=== PATIENT | male | born 1965 | race Caucasian/White ===

== ENCOUNTER 2016-12-28 14:57 | Inpatient (IN) | payer MEDICARE, MEDICAID ==
--- NOTE | 2016-12-28 15:44 | ED Physician Chart ---
ED Chief Complaint/HPI - Patient Information Date Seen:: 12/28/16 Time Seen:: 15:30 Chief Complaint:: abdominal pain History of Present Illness:: Patient complains of lower abdominal pain at the side of his inguinal hernia repairs. He has been vomiting for one month and had diarrhea 3 times. He denies fever. Patient had 40 minutes of sharp substernal nonpleuritic chest pain this morning. The last similar episode of chest pain was 2 weeks ago. Allergies:: Allergies Allergy/AdvReac Type Severity Reaction Status Date / Time meperidine Allergy Verified 12/28/16 15:10 morphine Allergy Verified 12/28/16 15:10 Vitals:: Vital Signs - 8 hr 12/28/16 15:10 Temp 98.5 F HR 80 RR 16 BP 115/74 O2 Sat % 95 Historian:: Patient Review:: Nurse's Note Reviewed ED Review of Systems - Review of Systems General/Constitutional: No fever, No chills Skin: No skin lesions Head: No headache Eyes: No loss of vision ENT: No earache, No sore throat Neck: No neck pain Cardio Vascular: Chest pain Pulmonary: No SOB GI: Nausea, Vomiting, Diarrhea G/U: No dysuria Musculoskeletal: No bone or joint pain Endocrine: No polyuria Psychiatric: No prior psych history Hematopoietic: No bruising Allergic/Immuno: No urticaria Neurological: No syncope, No focal symptoms, No weakness, No dizziness ED Past Medical History - Past Medical History Past Medical History: Asthma/COPD, Other (acute renal failure; schizophrenia; major depression; anxiety) Family History: HTN Social History: Smoker, Care Facility, Other (smokes one half packages of cigarettes per day and smokes 1) Surgical History: other (laparotomy for peptic ulcer; 3 right inguinal and 2 left inguinal hernia repairs) ED Physical Exam - Physical Examination General/Constitutional: Awake, Well-developed, well-nourished, Alert, No distress Head: Atraumatic Eyes: Lids, conjuctiva normal, PERRL Other Skin comments:: Nicotine stained fingers ENMT: External ears, nose nl Other ENMT comments:: poor dental hygiene Neck: No nuchal rigidity Respiratory: Nl effort/Exclusion Other Respiratory comments:: Decreased breath sounds Cardio Vascular: RRR, No murmur, gallop, rubs GI: No tenderness/rebounding/guarding, No organomegaly Other GI comments:: Mild lower abdominal tenderness Extremities: Normal digits & nails Neuro/Psych: Alert/oriented, No focal deficits Misc: Normal back ED Labs/Radiology/EKG Results - Lab Results Results: Laboratory Results - last 24 hr 12/28/16 12/28/16 12/28/16 15:41 15:41 15:41 WBC 7.5 RBC 4.87 Hgb 13.8 Hct 41.8 MCV 85.8 MCH 28.4 MCHC Differential 33.1 RDW 13.6 Plt Count 200 MPV 8.8 Neutrophils % 60.7 Lymphocytes % 25.9 Monocytes % 11.9 H Eosinophils % 1.3 Basophils % 0.2 Sodium 137 Potassium 3.4 L Chloride 93 L Carbon Dioxide 42.1 H Anion Gap 5.3 L BUN 18 Creatinine 0.9 Est GFR ( Amer) > 60.0 Est GFR (Non-Af Amer) > 60.0 BUN/Creatinine Ratio 20.0 Glucose 115 H Calcium 10.3 Magnesium 1.8 L Troponin I < 0.01 L Lipase 25 - Radiology Results Results: Chest x-ray left perihilar fullness. CT abdomen and pelvis showed massively distended stomach; possible gastric outlet obstruction - EKG Interpretations Rate & Rhythm: normal sinus rhythm with a rate of 80 [place]: normal Comments:: Early repolarization ED Septic Shock - . Is Septic Shock (SBP<90, OR Lactate>4 mmol\L) present?: No - <6hrs of presentation: Vital Signs: Vital Signs - 8 hr 12/28/16 15:10 Temp 98.5 F HR 80 RR 16 BP 115/74 O2 Sat % 95 ED Reassessment (Disposition) - Reassessment Reassessment Condition:: Unchanged - Diagnosis Diagnosis:: gastric outlet obstruction; COPD; schizophrenia - Patient Disposition Admitted to:: Med/Surg Spoke to:: Tung Collier Admitting Medical Physician:: Tung Collier Condition at Disposition:: Stable, Unchanged
[2016-12-28 15:46] LABS: % BASOPHILS 0.2 % (0.0-2.0); % EOSINOPHILS 1.3 % (0.0-5.0); % LYMPHOCYTES 25.9 % (20.0-50.0); % MONOCYTES 11.9 % (2.0-10.0); % NEUTROPHILS 60.7 % (40.0-80.0); HEMATOCRIT 41.8 % (41.0-60); HEMOGLOBIN 13.8 gm/dL (12-16); MEAN CELL VOLUME 85.8 fl (80-99); MEAN CORPUSCULAR HEMOGLOBIN 28.4 pg (26.0-30.0); MEAN CORPUSCULAR HGB CONC 33.1 pg (28.0-36.0); MEAN PLATELET VOLUME 8.8 fl; NEUTROPHILE ABSOLUTE 4.6 Th/cmm (1.8-8.0); PLATELET COUNT 200 Th/cmm (150-400); RED BLOOD COUNT 4.87 Mil/cmm (4.30-5.70); RED CELL DISTRIBUTION WIDTH 13.6 % (11.5-20.0); WHITE BLOOD COUNT 7.5 Th/cmm (4.8-10.8)
[2016-12-28 16:03] LABS: ANION GAP 5.3 (7.0-16.0); BUN - UREA NITROGEN 18 mg/dL (7-25); CALCIUM SERUM 10.3 mg/dL (8.6-10.3); CARBON DIOXIDE 42.1 mEq/L (21.0-31.0); CHLORIDE 93 mEq/L (98-107); CREATININE - SERUM 0.9 mg/dL (0.7-1.3); GLUCOSE 115 mg/dL (70-105); LIPASE 25 U/L (11-82); MAGNESIUM 1.8 mg/dL (1.9-2.7); POTASSIUM SERUM 3.4 mEq/L (3.5-5.1); SODIUM SERUM 137 mEq/L (136-145)
[2016-12-28 17:24] LABS: URINE BILIRUBIN NEGATIVE (NEGATIVE); URINE BLOOD NEGATIVE (NEGATIVE); URINE GLUCOSE (UA) NEGATIVE (NEGATIVE); URINE KETONE NEGATIVE (NEGATIVE); URINE PROTEIN NEGATIVE (NEGATIVE); URINE UROBILINOGEN 0.2 E.U./dL (0.2 - 1.0)
[2016-12-28 17:52] LABS: URINE COLOR YELLOW
[2016-12-28 17:54] LABS: URINE BACTERIA NONE SEEN /hpf (NONE SEEN); URINE EPITHELIAL CELLS NONE SEEN /lpf (FEW); URINE RBC NONE SEEN /hpf (0-5); URINE WBC NONE SEEN /hpf (0-5)
[2016-12-28] MEDS ORDERED: Sodium Chloride 0.9% 1,000 ML IV ONE (18:34)
[2016-12-28] MEDS ORDERED: HYDROmorphone 1 mg/mL 1mL Syr IVP STA (18:35)
[2016-12-28] MEDS ORDERED: HYDROmorphone 1 mg/mL 1mL Syr ONE (19:36)
[2016-12-28] MEDS ORDERED: Albuterol Nebulizer 2.5mg/3mL HHN PRN (19:53)
[2016-12-28] MEDS ORDERED: Magnesium Hydroxide (MOM) 30 mL UDC PO PRN (19:53)
[2016-12-28] MEDS ORDERED: Maalox 30 mL Cup PO PRN (21:05)
[2016-12-28] MEDS: D5-0.9NS w/KCL 20mEq 1,000 ML IV SCH (22:10)
[2016-12-28] MEDS: Metoclopramide 5 mg/mL 2mL Vial IVP SCH (22:10)
[2016-12-28 23:09] VITALS: BP 101/64
[2016-12-29 05:08] LABS: % BASOPHILS 0.1 % (0.0-2.0); % LYMPHOCYTES 34.4 % (20.0-50.0); % MONOCYTES 14.5 % (2.0-10.0); HEMATOCRIT 39.3 % (41.0-60); HEMOGLOBIN 13.2 gm/dL (12-16); MEAN CELL VOLUME 86.1 fl (80-99); MEAN CORPUSCULAR HEMOGLOBIN 28.8 pg (26.0-30.0); MEAN CORPUSCULAR HGB CONC 33.5 pg (28.0-36.0); MEAN PLATELET VOLUME 9.3 fl; NEUTROPHILE ABSOLUTE 3.8 Th/cmm (1.8-8.0); PLATELET COUNT 188 Th/cmm (150-400); RED BLOOD COUNT 4.57 Mil/cmm (4.30-5.70); RED CELL DISTRIBUTION WIDTH 13.6 % (11.5-20.0); WHITE BLOOD COUNT 7.8 Th/cmm (4.8-10.8)
[2016-12-29 05:35] LABS: ALB/GLOB RATIO 1.1 (1.0-1.8); ALKALINE PHOSPHATASE 59 U/L (34-104); BILIRUBIN,TOTAL 0.4 mg/dL (0.3-1.0); BUN - UREA NITROGEN 17 mg/dL (7-25); BUN/CREATININE RATIO 21.3; CALCIUM SERUM 9.2 mg/dL (8.6-10.3); CHLORIDE 92 mEq/L (98-107); CREATININE - SERUM 0.8 mg/dL (0.7-1.3); GLUCOSE 92 mg/dL (70-105); MAGNESIUM 1.8 mg/dL (1.9-2.7); POTASSIUM SERUM 3.1 mEq/L (3.5-5.1); SGOT 10 U/L (13-39); SGPT/ALT 7 U/L (7-52); SODIUM SERUM 136 mEq/L (136-145)
[2016-12-29 05:50] LABS: ANION GAP 6.9 (7.0-16.0)
[2016-12-29 05:57] LABS: CARBON DIOXIDE 40.2 mEq/L (21.0-31.0)
--- NOTE | 2016-12-29 08:05 | Diagnostic Imaging Report ---
CHEST X-RAY: AP view INDICATION: Pneumonia COMPARISON: None FINDINGS: Chronic lung changes are noted. There is no focal consolidation or pleural effusions The heart is normal in size. The osseous structures demonstrate no acute abnormalities. IMPRESSION: Chronic lung changes with no focal consolidation identified.
--- NOTE | 2016-12-29 08:18 | Diagnostic Imaging Report ---
CT abdomen and pelvis without intravenous contrast Indication: Abdominal pain Comparison: None, Technique: Axial images were obtained from the lung bases to the bilateral proximal femurs without IV contrast. Coronal reconstructions were made. total DLP: 368, CTDI7.9 FINDINGS: Hypoventilatory changes and atelectatic changes of the lung bases are noted. Assessment of the solid organs is limited due to lack of IV contrast. No evidence of focal hepatic lesions. No focal splenic or pancreatic lesions. Note assessment of the pancreas is limited due to patient's distended stomach. No focal adrenal lesions. No evidence of hydronephrosis or focal renal lesions. No evidence of free fluid or free air. Moderate amount of stool is noted. No appendicitis. There is significant distention of the stomach with food contents and narrowing along the distal aspect of the stomach. Nondilated loops of small bowel are noted. The prostate gland is mildly prominent demonstrating calcifications. Mild atherosclerosis is noted. Degenerative changes of the spine are noted. 7 mm indeterminate lucent lesion of the left iliac bone is seen adjacent to the posterior aspect of the left sacroiliac joint. IMPRESSION: Significant distention of the stomach containing food contents with narrowing along the distal stomach. Nondilated loops of small bowel are noted. Please correlate clinically as gastric outlet obstruction cannot be excluded in the appropriate clinical setting. Moderate amount of stool noted. Mildly prominent prostate please, correlate with clinical findings. 7 mm indeterminate lucent lesion of left iliac bone adjacent to the posterior aspect of the left sacroiliac joint. Please correlate with clinical findings and old exams. Short-term follow-up surveillance is recommended as benign or malignant etiology cannot be excluded.
[2016-12-29] MEDS: HYDROmorphone 1 mg/mL 1mL Syr IVP PRN ×3 (08:57→14:16)
[2016-12-29] MEDS ORDERED: Pneumococcal Vaccine 0.5 mL Vial IM ONE (09:00)
[2016-12-29] MEDS: Metoclopramide 5 mg/mL 2mL Vial IVP SCH ×4 (09:03→23:49)
[2016-12-29] MEDS: D5-0.9NS w/KCL 20mEq 1,000 ML IV SCH ×2 (13:16→23:11)
[2016-12-29] MEDS ORDERED: Potassium Chloride 20 mEq ER Tab PO ONE (14:48)
--- NOTE | 2016-12-29 19:17 | Internal Medicine Prog Note ---
Internal Medicine Subjective - Subjective Service Date: 12/29/16 ([facility] [id number]) Internal Medicine Objective - Results Result Diagrams: 12/29/16 04:48 12/29/16 04:48 Recent Labs: Laboratory Last Values WBC 7.8 Th/cmm (4.8-10.8) 12/29/16 04:48 RBC 4.57 Mil/cmm (4.30-5.70) 12/29/16 04:48 Hgb 13.2 gm/dL (12-16) 12/29/16 04:48 Hct 39.3 % (41.0-60) L 12/29/16 04:48 MCV 86.1 fl (80-99) 12/29/16 04:48 MCH 28.8 pg (26.0-30.0) 12/29/16 04:48 MCHC Differential 33.5 pg (28.0-36.0) 12/29/16 04:48 RDW 13.6 % (11.5-20.0) 12/29/16 04:48 Plt Count 188 Th/cmm (150-400) 12/29/16 04:48 MPV 9.3 fl 12/29/16 04:48 Neutrophils % 49.0 % (40.0-80.0) 12/29/16 04:48 Lymphocytes % 34.4 % (20.0-50.0) 12/29/16 04:48 Monocytes % 14.5 % (2.0-10.0) H 12/29/16 04:48 Eosinophils % 2.0 % (0.0-5.0) 12/29/16 04:48 Basophils % 0.1 % (0.0-2.0) 12/29/16 04:48 Sodium 136 mEq/L (136-145) 12/29/16 04:48 Potassium 3.1 mEq/L (3.5-5.1) L 12/29/16 04:48 Chloride 92 mEq/L (98-107) L 12/29/16 04:48 Carbon Dioxide 40.2 mEq/L (21.0-31.0) H 12/29/16 04:48 Anion Gap 6.9 (7.0-16.0) L 12/29/16 04:48 BUN 17 mg/dL (7-25) 12/29/16 04:48 Creatinine 0.8 mg/dL (0.7-1.3) 12/29/16 04:48 Est GFR ( Amer) > 60.0 ml/min (>90) 12/29/16 04:48 Est GFR (Non-Af Amer) > 60.0 ml/min 12/29/16 04:48 BUN/Creatinine Ratio 21.3 12/29/16 04:48 Glucose 92 mg/dL (70-105) 12/29/16 04:48 Calcium 9.2 mg/dL (8.6-10.3) 12/29/16 04:48 Magnesium 1.8 mg/dL (1.9-2.7) L 12/29/16 04:48 Total Bilirubin 0.4 mg/dL (0.3-1.0) 12/29/16 04:48 AST 10 U/L (13-39) L 12/29/16 04:48 ALT 7 U/L (7-52) 12/29/16 04:48 Alkaline Phosphatase 59 U/L (34-104) 12/29/16 04:48 Troponin I < 0.01 ng/mL (0.01-0.05) L 12/28/16 15:41 Total Protein 6.2 gm/dL (6.0-8.3) 12/29/16 04:48 Albumin 3.2 gm/dL (4.2-5.5) L 12/29/16 04:48 Globulin 3.0 gm/dL 12/29/16 04:48 Albumin/Globulin Ratio 1.1 (1.0-1.8) 12/29/16 04:48 Lipase 25 U/L (11-82) 12/28/16 15:41 TSH 1.66 uIU/ml (0.34-5.60) 12/29/16 04:48 Urine Source MIDSTREAM 12/28/16 15:00 Urine Color YELLOW 12/28/16 15:00 Urine Clarity CLEAR (CLEAR) 12/28/16 15:00 Urine pH 8.0 (4.6 - 8.0) 12/28/16 15:00 Ur Specific [place] 1.015 (1.005-1.030) 12/28/16 15:00 Urine Protein NEGATIVE mg/dL (NEGATIVE) 12/28/16 15:00 Urine Glucose (UA) NEGATIVE mg/dL (NEGATIVE) 12/28/16 15:00 Urine Ketones NEGATIVE mg/dL (NEGATIVE) 12/28/16 15:00 Urine Blood NEGATIVE (NEGATIVE) 12/28/16 15:00 Urine Nitrate NEGATIVE (NEGATIVE) 12/28/16 15:00 Urine Bilirubin NEGATIVE (NEGATIVE) 12/28/16 15:00 Urine Urobilinogen 0.2 E.U./dL (0.2 - 1.0) 12/28/16 15:00 Ur Leukocyte Esterase NEGATIVE (NEGATIVE) 12/28/16 15:00 Urine RBC NONE SEEN /hpf (0-5) 12/28/16 15:00 Urine WBC NONE SEEN /hpf (0-5) 12/28/16 15:00 Ur Epithelial Cells NONE SEEN /lpf (FEW) 12/28/16 15:00 Urine Bacteria NONE SEEN /hpf (NONE SEEN) 12/28/16 15:00 - Physical Exam Vitals and I&O: Vital Signs Temp 99.2 F 12/29/16 13:00 Pulse 66 12/29/16 13:00 Resp 18 12/29/16 13:00 BP 98/53 12/29/16 13:00 Pulse Ox 96 12/29/16 04:54 Intake & Output 12/29/16 12/29/16 12/30/16 06:59 18:59 06:59 Intake Total 340 2000 Output Total 800 Balance -460 2000 Weight (lbs) 158 lb Intake: Intake, IV Amount 2000 D5-0.9NS w/KCL 20mEq 1, 2000 000 ml @ 100 mls/hr IV . Q10H ON LICENSE OF [facility] Rx#:[id number] Oral 340 Output: Urine 700 Emesis 100 Other: # Voids 2 # Bowel Movements 0 Active Medications: Current Medications Acetaminophen (Tylenol) 650 mg PO Q4H PRN PRN Reason: Pain Or Fever above 101 Stop: 02/26/17 19:57 Al Hydrox/Mg Hydrox/Simethicone (Maalox) 30 ml PO Q4H PRN PRN Reason: DYSPEPSIA Stop: 02/26/17 21:04 Albuterol Sulfate (Albuterol 2.5mg/3ml Neb Ud) 2.5 mg HHN Q6H PRN PRN Reason: sob/wheezing Docusate Sodium (Colace) 100 mg PO DAILY ON LICENSE OF [facility] Stop: 02/27/17 08:59 Last Admin: 12/29/16 09:04 Dose: 100 mg Famotidine (Pepcid) 20 mg IVP BID SEAN Stop: 02/27/17 08:59 Last Admin: 12/29/16 16:18 Dose: 20 mg Hydromorphone HCl (Dilaudid) 1 mg IVP Q4HR PRN PRN Reason: Pain (Severe) Stop: 02/26/17 19:56 Last Admin: 12/29/16 14:16 Dose: 1 mg Potassium Chloride/Dextrose/Sod Cl (D5-0.9ns W/Kcl 20meq) 1,000 mls @ 100 mls/ hr IV .Q10H SEAN Stop: 02/26/17 19:55 Last Infusion: 12/29/16 13:24 Dose: Infused Lorazepam (Ativan) 1 mg PO Q6H PRN; Protocol PRN Reason: Anxiety Stop: 02/26/17 19:52 Magnesium Hydroxide (Milk Of Magnesia) 30 ml PO HS PRN PRN Reason: Constipation Stop: 02/26/17 19:52 Metoclopramide HCl (Reglan) 10 mg IVP Q6HR SEAN Stop: 12/30/16 23:59 Last Admin: 12/29/16 13:44 Dose: 10 mg Ondansetron HCl (Zofran) 4 mg IV Q8H PRN PRN Reason: Nausea / Vomiting Stop: 02/26/17 19:57 Last Admin: 12/29/16 00:00 Dose: 4 mg Risperidone (Risperdal) 2 mg PO BID ON LICENSE OF [facility] Stop: 02/27/17 08:59 Senna (Senna) 8.6 mg PO DAILY ON LICENSE OF [facility] Stop: 02/27/17 08:59 Last Admin: 12/29/16 09:04 Dose: 8.6 mg Sertraline HCl (Zoloft) 100 mg PO DAILY ON LICENSE OF [facility] Stop: 02/27/17 08:59 Zolpidem Tartrate (Ambien) 10 mg PO HS PRN PRN Reason: Insomnia Stop: 02/26/17 21:06 Internal Medicine Assmt/Plan - Assessment Assessment: ABDOMINAL PAIN hypokalemia copd hypomagnesemia mild protein calorie malnutrition schizophrenia acute kidney failure
--- NOTE | 2016-12-29 20:50 | History & Physical ---
ADMIT DATE: 12/29/2016 DICTATED FOR: Dr: Tung Collier. CHIEF COMPLAINT: Abdominal pain. HISTORY OF PRESENT ILLNESS: This is a 51-year-old male, who is a resident of [facility], who was brought here to [facility] due to complaints of abdominal pain. According to the patient, he has been having this recurrent abdominal pain for one month associated with vomiting. He also states that he has been having diarrhea. The patient denies any fevers. He also stated that his abdominal pain radiates to his epigastric area that caused him to have chest pain as well. Upon examination, the patient still complains of abdominal pain that radiates to the epigastric area. PAST MEDICAL HISTORY: COPD, generalized weakness, acute kidney failure, schizophrenia, major depressive disorder and anxiety. SOCIAL HISTORY: The patient is a skilled nursing resident. The patient also smokes half a pack per day. PAST SURGICAL HISTORY: Two right inguinal and two left inguinal hernia repair. FAMILY HISTORY: Noncontributory. REVIEW OF SYSTEMS: GENERAL: Denies any fever, any chills. CARDIOVASCULAR: Denies chest pain. RESPIRATORY: Denies shortness of breath. GASTROINTESTINAL: Denies abdominal pain. Patient complains of abdominal pain. Denies any nausea or vomiting. GENITOURINARY: Denies dysuria. All other systems are reviewed by me and are negative. PHYSICAL EXAMINATION: GENERAL: The patient is well developed, well nourished, no acute distress. VITAL SIGNS: Temperature 99.2, heart rate 66, blood pressure 98/53, respirations 18, O2 of 98%. HEENT: Head is normocephalic and atraumatic. NECK: Supple. No mass. LUNGS: Clear bilaterally. ABDOMEN: Soft, nontender. LABORATORY DATA: WBC 7.8, H and H 13.2 and 39.3, platelet 188. Sodium 136, potassium 3.1, chloride 92, BUN 17, creatinine 0.8. Albumin 3.2. DIAGNOSTICS: The patient had a chest x-ray done and the impression chronic lung changes. Also, a CT of the abdomen and pelvis was also done and the impression is significant distention of the stomach containing food contents with narrowing along the distal stomach , moderate amount of stool noted. ASSESSMENT: Abdominal pain, chronic obstructive pulmonary disease, acute kidney failure, schizophrenia, hypokalemia, mild protein-calorie malnutrition, hypomagnesemia. PLAN: The patient was admitted to the med/surg unit, will have GI on the case. We will monitor patient's electrolytes level. The patient to be n.p.o., IV fluids for hydration. Pain management will be initiated. We will continue to monitor this patient. JOB# [id number]
--- NOTE | 2016-12-29 22:19 | Consultation ---
DATE OF CONSULTATION: 12/29/2016 REASON FOR CONSULTATION: Nausea, vomiting, abdominal pain. HISTORY OF PRESENT ILLNESS: This consult was obtained through the courtesy of Dr. Collier for this 51-year-old with history of schizophrenia admitted to the hospital because of abdominal pain, nausea, vomiting. The patient apparently had recurrent episodes like this. He had history of ulcers for which he had surgery in the past. The patient came to the hospital, was admitted, had a CAT scan, which showed possible gastric outlet obstruction. The patient denies any weight loss. No hematemesis, melena or hematochezia. PAST MEDICAL HISTORY: Schizophrenia. PAST SURGICAL HISTORY: Abdominal surgery for ulcer. SOCIAL HISTORY: Smokes 1 pack a day, nonalcoholic, IV drug abuser. FAMILY HISTORY:. He thinks his mother might have stomach cancer, his father before he knew. MEDICATIONS: Risperdal. ALLERGIES: No known drug allergy. REVIEW OF SYSTEMS: As per history of present illness. PHYSICAL EXAMINATION: GENERAL: The patient is awake, oriented to self, place, in no acute distress. VITAL SIGNS: Blood pressure is 110/69, respiratory rate 18, temperature is 98.4. HEAD AND NECK: Pupils reactive to light and accommodation. Extraocular muscles intact. Sclerae are anicteric, conjunctivae not pale. Oral cavity, no lesion. NECK: Supple, no jugular venous distention, no carotid bruit or lymph nodes. CHEST: Good respiratory movements. LUNGS: Clear to auscultation. CARDIOVASCULAR SYSTEM: Regular rate and rhythm. No murmur or gallop. ABDOMEN: Soft, positive bowel sounds, scar from previous surgery. Abdomen was not tender. EXTREMITIES: Lower extremities, no edema. CENTRAL NERVOUS SYSTEM: Grossly nonfocal. LABORATORY DATA: CBC unremarkable. Chemistry showed potassium of 3.4, normal liver enzymes. CT showed significant distention of the stomach with some food contents, narrowing at the distal end. IMPRESSION: A 51-year-old with abdominal pain, nausea, vomiting, abnormal CAT scan. ASSESSMENT AND PLAN: Abdominal pain, nausea and vomiting. Differential includes gastric outlet obstruction versus anastomotic stenosis versus gastroparesis secondary to surgery. RECOMMENDATION: 1. Clear liquid diet. 2. EGD in the morning. 3. Further recommendations to follow depending on the above. Other medical problems such as schizophrenia, possible COPD, etc., as per Dr. Collier. Thank you, Dr. Collier for allowing me to participate in the care of this patient. If you have any further questions, please let me know. JOB# [id number] ARYA
[2016-12-30] MEDS: Metoclopramide 5 mg/mL 2mL Vial IVP SCH (06:56)
[2016-12-30 07:21] LABS: % EOSINOPHILS 1.7 % (0.0-5.0); % MONOCYTES 11.4 % (2.0-10.0); % NEUTROPHILS 59.9 % (40.0-80.0); HEMATOCRIT 39.4 % (41.0-60); HEMOGLOBIN 13.4 gm/dL (12-16); MEAN CELL VOLUME 85.4 fl (80-99); MEAN CORPUSCULAR HEMOGLOBIN 29.1 pg (26.0-30.0); MEAN CORPUSCULAR HGB CONC 34.1 pg (28.0-36.0); MEAN PLATELET VOLUME 9.6 fl; NEUTROPHILE ABSOLUTE 3.6 Th/cmm (1.8-8.0); PLATELET COUNT 171 Th/cmm (150-400); RED BLOOD COUNT 4.62 Mil/cmm (4.30-5.70); RED CELL DISTRIBUTION WIDTH 13.6 % (11.5-20.0)
[2016-12-30 07:43] LABS: ANION GAP 6.4 (7.0-16.0); BUN - UREA NITROGEN 9 mg/dL (7-25); BUN/CREATININE RATIO 12.9; CALCIUM SERUM 9.2 mg/dL (8.6-10.3); CARBON DIOXIDE 29.4 mEq/L (21.0-31.0); CHLORIDE 107 mEq/L (98-107); CREATININE - SERUM 0.7 mg/dL (0.7-1.3); GLUCOSE 96 mg/dL (70-105); POTASSIUM SERUM 3.8 mEq/L (3.5-5.1); SODIUM SERUM 139 mEq/L (136-145)
[2016-12-30 07:48] LABS: INR 1.1 (0.5-1.4); PROTHROMBIN TIME (TEST) 11.5 SECONDS (9.5-11.5)
[2016-12-30] MEDS ORDERED: fentaNYL Citrate 100 mcg/2mL Vial IVP ONE (09:35)
[2016-12-30] MEDS ORDERED: Midazolam 1mg/ml 2 ml vial IV ONE (09:35)
--- NOTE | 2016-12-30 10:39 | Operative Report ---
DATE OF SURGERY: 12/30/2016 ENDOSCOPIST: Diomedes Valenzuela M.D. PREOPERATIVE DIAGNOSIS: Possible gastric outlet obstruction. POSTOPERATIVE DIAGNOSES: Esophagitis, Pulido's esophagus, and duodenal ulcer. INDICATION: The patient is a 51-year-old male with history of schizophrenia and previous peptic ulcer disease, possibly requiring surgery in the past, who now presents with abdominal pain, nausea, and vomiting. CT scan shows possible gastric outlet obstruction thus he is here for EGD. CONSENT: Informed consent was obtained from the patient. The risks and benefits of this procedure were explained in detail including but not limited to infection, bleeding, perforation, need for surgery, cardiopulmonary complications, missed pathology and . The patient indicated his understanding of these risks and signed the consent form. ANESTHESIA: Four mg of Versed were given and 100 mcg of fentanyl were given. PROCEDURE IN DETAIL: The patient was hooked up to the appropriate monitoring devices including blood pressure, pulse, and pulse oximetry, and IV was in place. Oxygen was delivered via nasal cannula throughout the procedure. IV sedating medication was then given in divided doses under the direction of the physician. DESCRIPTION OF PROCEDURE: After the initiation of conscious sedation the patient was placed in the left lateral decubitus position and a mouthpiece was inserted and secured. A gastroscope was then introduced into the mouth and guided under direct visualization into the esophagus, stomach, and duodenum. The scope was then slowly withdrawn, making sure to examine the entire mucosa. Retroflexion was performed in the stomach prior to straightening and withdrawal from the body. There was no obvious complication at the end of the procedure. FINDINGS: 1. Esophagus: There was [place] class C esophagitis that extended all the way up to 30 cm from the incisors. There was evidence of long segment Pulido's esophagus as the Z line extent was noted to be 35 cm from the incisors. The endogastric folds were at 40 cm from the incisors. The [place] classification for his Pulido's esophagus would be C0 M5. Biopsies were obtained from the to confirm this diagnosis. 2. Stomach: There was bilious fluid in the stomach that was suctioned completely out with only a few pieces of food underneath the gastric body and antrum appeared endoscopically normal without ulceration or mass or inflammation. Biopsies were obtained from the antrum for histology and to evaluate for H. pylori. 3. Duodenum: The pyloric folds entering into the duodenum were edematous. The scope was able to pass into the duodenal bulb. Within the bulb, there was a large anterior ulcer that measured at least 1.5 cm in size. The ulcer had a clean base. There was no obvious vessel or sign of bleeding. Biopsies were obtained from the ulcer edge to look for malignancy. The scope was able to be manipulated around the ulcer into the second portion, which appeared endoscopically normal. IMPRESSION AND RECOMMENDATIONS: 1. Esophagitis. 2. 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 3. Large duodenal bulb ulceration with surrounding edema and inflammation. I suspect that the patient's symptoms of nausea, vomiting, and abdominal pain are related to the duodenal ulcer, which is likely causing a pseudo-gastric outlet obstruction given the edema that surrounds it. We will have to follow up the biopsies to ensure this is not malignant and to also evaluate for H. pylori as a possible etiology. In the meantime, we will continue the patient on PPI b.i.d. therapy and start him on clears. Given this is an obstructive pathology, Reglan will likely not be beneficial. If the patient fails to improve on PPI therapy and there is no malignancy, he may need to consider surgical bypass of this area ultimately. The patient will also need repeat EGD after 6-8 weeks of PPI therapy to reexamine his esophagus and perform biopsies of the Pulido's area to evaluate for any dysplasia. Thank you for allowing me to participate in the care of this patient. Please call with any further questions. [facility]# [id number]
[2016-12-30] MEDS: HYDROmorphone 1 mg/mL 1mL Syr IVP PRN ×3 (11:38→22:02)
[2016-12-30] MEDS: D5-0.9NS w/KCL 20mEq 1,000 ML IV SCH ×2 (11:55→22:05)
--- NOTE | 2016-12-30 13:33 | Internal Medicine Prog Note ---
Internal Medicine Subjective - Subjective Patient seen and examined:: with staff, chart reviewed Patient is:: awake, verbal, interactive, talking, agitated, confused Patient Complaints of:: constipation, unable to sleep Per staff patient has:: no adverse event, poor oral intake, tolerating meds Internal Medicine Objective - Results Result Diagrams: 12/30/16 06:33 12/30/16 06:33 Recent Labs: Laboratory Last Values WBC 6.0 Th/cmm (4.8-10.8) D 12/30/16 06:33 RBC 4.62 Mil/cmm (4.30-5.70) 12/30/16 06:33 Hgb 13.4 gm/dL (12-16) 12/30/16 06:33 Hct 39.4 % (41.0-60) L 12/30/16 06:33 MCV 85.4 fl (80-99) 12/30/16 06:33 MCH 29.1 pg (26.0-30.0) 12/30/16 06:33 MCHC Differential 34.1 pg (28.0-36.0) 12/30/16 06:33 RDW 13.6 % (11.5-20.0) 12/30/16 06:33 Plt Count 171 Th/cmm (150-400) 12/30/16 06:33 MPV 9.6 fl 12/30/16 06:33 Neutrophils % 59.9 % (40.0-80.0) 12/30/16 06:33 Lymphocytes % 27.0 % (20.0-50.0) 12/30/16 06:33 Monocytes % 11.4 % (2.0-10.0) H 12/30/16 06:33 Eosinophils % 1.7 % (0.0-5.0) 12/30/16 06:33 Basophils % 0.0 % (0.0-2.0) 12/30/16 06:33 PT 11.5 SECONDS (9.5-11.5) 12/30/16 06:33 INR 1.10 (0.5-1.4) 12/30/16 06:33 Sodium 139 mEq/L (136-145) 12/30/16 06:33 Potassium 3.8 mEq/L (3.5-5.1) 12/30/16 06:33 Chloride 107 mEq/L (98-107) 12/30/16 06:33 Carbon Dioxide 29.4 mEq/L (21.0-31.0) 12/30/16 06:33 Anion Gap 6.4 (7.0-16.0) L 12/30/16 06:33 BUN 9 mg/dL (7-25) 12/30/16 06:33 Creatinine 0.7 mg/dL (0.7-1.3) 12/30/16 06:33 Est GFR ( Amer) > 60.0 ml/min (>90) 12/30/16 06:33 Est GFR (Non-Af Amer) > 60.0 ml/min 12/30/16 06:33 BUN/Creatinine Ratio 12.9 12/30/16 06:33 Glucose 96 mg/dL (70-105) 12/30/16 06:33 POC Glucose 106 MG/DL (70 - 105) H 12/30/16 05:23 Calcium 9.2 mg/dL (8.6-10.3) 12/30/16 06:33 Magnesium 1.8 mg/dL (1.9-2.7) L 12/29/16 04:48 Total Bilirubin 0.4 mg/dL (0.3-1.0) 12/29/16 04:48 AST 10 U/L (13-39) L 12/29/16 04:48 ALT 7 U/L (7-52) 12/29/16 04:48 Alkaline Phosphatase 59 U/L (34-104) 12/29/16 04:48 Troponin I < 0.01 ng/mL (0.01-0.05) L 12/28/16 15:41 Total Protein 6.2 gm/dL (6.0-8.3) 12/29/16 04:48 Albumin 3.2 gm/dL (4.2-5.5) L 12/29/16 04:48 Globulin 3.0 gm/dL 12/29/16 04:48 Albumin/Globulin Ratio 1.1 (1.0-1.8) 12/29/16 04:48 Lipase 25 U/L (11-82) 12/28/16 15:41 TSH 1.66 uIU/ml (0.34-5.60) 12/29/16 04:48 Urine Source MIDSTREAM 12/28/16 15:00 Urine Color YELLOW 12/28/16 15:00 Urine Clarity CLEAR (CLEAR) 12/28/16 15:00 Urine pH 8.0 (4.6 - 8.0) 12/28/16 15:00 Ur Specific [place] 1.015 (1.005-1.030) 12/28/16 15:00 Urine Protein NEGATIVE mg/dL (NEGATIVE) 12/28/16 15:00 Urine Glucose (UA) NEGATIVE mg/dL (NEGATIVE) 12/28/16 15:00 Urine Ketones NEGATIVE mg/dL (NEGATIVE) 12/28/16 15:00 Urine Blood NEGATIVE (NEGATIVE) 12/28/16 15:00 Urine Nitrate NEGATIVE (NEGATIVE) 12/28/16 15:00 Urine Bilirubin NEGATIVE (NEGATIVE) 12/28/16 15:00 Urine Urobilinogen 0.2 E.U./dL (0.2 - 1.0) 12/28/16 15:00 Ur Leukocyte Esterase NEGATIVE (NEGATIVE) 12/28/16 15:00 Urine RBC NONE SEEN /hpf (0-5) 12/28/16 15:00 Urine WBC NONE SEEN /hpf (0-5) 12/28/16 15:00 Ur Epithelial Cells NONE SEEN /lpf (FEW) 12/28/16 15:00 Urine Bacteria NONE SEEN /hpf (NONE SEEN) 12/28/16 15:00 - Physical Exam Vitals and I&O: Vital Signs Temp 96.7 F 12/30/16 12:00 Pulse 67 12/30/16 12:00 Resp 16 12/30/16 12:00 BP 100/68 12/30/16 12:00 Pulse Ox 90 12/30/16 12:00 Intake & Output 12/29/16 12/30/16 12/30/16 18:59 06:59 18:59 Intake Total 1999 340 1000 Output Total 900 Balance 1999 -560 1000 Weight (lbs) 71.668 kg Intake: Intake, IV Amount 1999 1000 D5-0.9NS w/KCL 20mEq , 1999 1000 000 ml @ 100 mls/hr IV . Q10H SEAN Rx#:[id number] Oral 340 Output: Urine 900 Other: # Bowel Movements 0 Active Medications: Current Medications Acetaminophen (Tylenol) 650 mg PO Q4H PRN PRN Reason: Pain Or Fever above 101 Stop: 12/18/17 19:57 Al Hydrox/Mg Hydrox/Simethicone (Maalox) 30 ml PO Q4H PRN PRN Reason: DYSPEPSIA Stop: 02/26/17 21:04 Albuterol Sulfate (Albuterol 2.5mg/3ml Neb Ud) 2.5 mg HHN Q6H PRN PRN Reason: sob/wheezing Docusate Sodium (Colace) 100 mg PO DAILY SEAN Stop: 02/27/17 08:59 Last Admin: 12/30/16 11:10 Dose: 100 mg Hydromorphone HCl (Dilaudid) 1 mg IVP Q4HR PRN PRN Reason: Pain (Severe) Stop: 02/26/17 19:56 Last Admin: 12/30/16 11:38 Dose: 1 mg Potassium Chloride/Dextrose/Sod Cl (D5-0.9ns W/Kcl 20meq) 1,000 mls @ 100 mls/ hr IV .Q10H SEAN Stop: 02/26/17 19:55 Last Admin: 12/30/16 11:55 Dose: 100 mls/hr Lorazepam (Ativan) 1 mg PO Q6H PRN; Protocol PRN Reason: Anxiety Stop: 02/26/17 19:52 Magnesium Hydroxide (Milk Of Magnesia) 30 ml PO HS PRN PRN Reason: Constipation Stop: 02/26/17 19:52 Ondansetron HCl (Zofran) 4 mg IV Q8H PRN PRN Reason: Nausea / Vomiting Stop: 02/26/17 19:57 Last Admin: 12/29/16 00:00 Dose: 4 mg Pantoprazole Sodium (Protonix) 40 mg IVP BID [facility] Stop: 02/28/17 16:59 Risperidone (Risperdal) 2 mg PO BID [facility] Stop: 02/27/17 08:59 Senna (Senna) 8.6 mg PO DAILY SEAN Stop: 02/27/17 08:59 Last Admin: 12/30/16 11:10 Dose: 8.6 mg Sertraline HCl (Zoloft) 100 mg PO DAILY [facility] Stop: 02/27/17 08:59 Zolpidem Tartrate (Ambien) 10 mg PO HS PRN PRN Reason: Insomnia Stop: 02/26/17 21:06 General: alert HEENT: NC/AT, PERRLA, EOMI Neck: Supple, No JVD, No thyromegaly Lungs: CTAB Cardiovascular: RRR, Normal S1, Normal S2, without murmur Abdomen: soft, tender, positive bowel sound Extremities: excoriation - Procedures Procedures: Procedures Procedure Code Date EGD BIOPSY SINGLE/MULTIPLE 03527 12/28/16 EXCISION OF DUODENUM, ENDO, DIAGN [id number] 12/28/16 EXCISION OF STOMACH, ENDO, DIAGN [id number] 12/28/16 Internal Medicine Assmt/Plan - Assessment Assessment: ABDOMINAL PAIN hypokalemia copd hypomagnesemia mild protein calorie malnutrition schizophrenia acute kidney failure - Plan Plan: cont on ivf gi follow up had egd will confer w dr claudio delgadillo rn will refer to [facility] as well
--- NOTE | 2016-12-31 10:08 | GI Progress Note ---
Subjective - Review of Systems Service Date: 12/31/16 Subjective: Walking the halls today, no abd pain or nausea Objective - Results Result Diagrams: 12/30/16 06:33 12/30/16 06:33 Recent Labs: Laboratory Last Values WBC 6.0 Th/cmm (4.8-10.8) D 12/30/16 06:33 RBC 4.62 Mil/cmm (4.30-5.70) 12/30/16 06:33 Hgb 13.4 gm/dL (12-16) 12/30/16 06:33 Hct 39.4 % (41.0-60) L 12/30/16 06:33 MCV 85.4 fl (80-99) 12/30/16 06:33 MCH 29.1 pg (26.0-30.0) 12/30/16 06:33 MCHC Differential 34.1 pg (28.0-36.0) 12/30/16 06:33 RDW 13.6 % (11.5-20.0) 12/30/16 06:33 Plt Count 171 Th/cmm (150-400) 12/30/16 06:33 MPV 9.6 fl 12/30/16 06:33 Neutrophils % 59.9 % (40.0-80.0) 12/30/16 06:33 Lymphocytes % 27.0 % (20.0-50.0) 12/30/16 06:33 Monocytes % 11.4 % (2.0-10.0) H 12/30/16 06:33 Eosinophils % 1.7 % (0.0-5.0) 12/30/16 06:33 Basophils % 0.0 % (0.0-2.0) 12/30/16 06:33 PT 11.5 SECONDS (9.5-11.5) 12/30/16 06:33 INR 1.10 (0.5-1.4) 12/30/16 06:33 Sodium 139 mEq/L (136-145) 12/30/16 06:33 Potassium 3.8 mEq/L (3.5-5.1) 12/30/16 06:33 Chloride 107 mEq/L (98-107) 12/30/16 06:33 Carbon Dioxide 29.4 mEq/L (21.0-31.0) 12/30/16 06:33 Anion Gap 6.4 (7.0-16.0) L 12/30/16 06:33 BUN 9 mg/dL (7-25) 12/30/16 06:33 Creatinine 0.7 mg/dL (0.7-1.3) 12/30/16 06:33 Est GFR ( Amer) > 60.0 ml/min (>90) 12/30/16 06:33 Est GFR (Non-Af Amer) > 60.0 ml/min 12/30/16 06:33 BUN/Creatinine Ratio 12.9 12/30/16 06:33 Glucose 96 mg/dL (70-105) 12/30/16 06:33 POC Glucose 106 MG/DL (70 - 105) H 12/30/16 05:23 Calcium 9.2 mg/dL (8.6-10.3) 12/30/16 06:33 Magnesium 1.8 mg/dL (1.9-2.7) L 12/29/16 04:48 Total Bilirubin 0.4 mg/dL (0.3-1.0) 12/29/16 04:48 AST 10 U/L (13-39) L 12/29/16 04:48 ALT 7 U/L (7-52) 12/29/16 04:48 Alkaline Phosphatase 59 U/L (34-104) 12/29/16 04:48 Troponin I < 0.01 ng/mL (0.01-0.05) L 12/28/16 15:41 Total Protein 6.2 gm/dL (6.0-8.3) 12/29/16 04:48 Albumin 3.2 gm/dL (4.2-5.5) L 12/29/16 04:48 Globulin 3.0 gm/dL 12/29/16 04:48 Albumin/Globulin Ratio 1.1 (1.0-1.8) 12/29/16 04:48 Lipase 25 U/L (11-82) 12/28/16 15:41 TSH 1.66 uIU/ml (0.34-5.60) 12/29/16 04:48 Urine Source MIDSTREAM 12/28/16 15:00 Urine Color YELLOW 12/28/16 15:00 Urine Clarity CLEAR (CLEAR) 12/28/16 15:00 Urine pH 8.0 (4.6 - 8.0) 12/28/16 15:00 Ur Specific [place] 1.015 (1.005-1.030) 12/28/16 15:00 Urine Protein NEGATIVE mg/dL (NEGATIVE) 12/28/16 15:00 Urine Glucose (UA) NEGATIVE mg/dL (NEGATIVE) 12/28/16 15:00 Urine Ketones NEGATIVE mg/dL (NEGATIVE) 12/28/16 15:00 Urine Blood NEGATIVE (NEGATIVE) 12/28/16 15:00 Urine Nitrate NEGATIVE (NEGATIVE) 12/28/16 15:00 Urine Bilirubin NEGATIVE (NEGATIVE) 12/28/16 15:00 Urine Urobilinogen 0.2 E.U./dL (0.2 - 1.0) 12/28/16 15:00 Ur Leukocyte Esterase NEGATIVE (NEGATIVE) 12/28/16 15:00 Urine RBC NONE SEEN /hpf (0-5) 12/28/16 15:00 Urine WBC NONE SEEN /hpf (0-5) 12/28/16 15:00 Ur Epithelial Cells NONE SEEN /lpf (FEW) 12/28/16 15:00 Urine Bacteria NONE SEEN /hpf (NONE SEEN) 12/28/16 15:00 - Physical Exam Vitals and I&O: Vital Signs Temp 98.6 F 12/31/16 04:00 Pulse 92 12/31/16 07:31 Resp 18 12/31/16 09:35 BP 109/72 12/31/16 04:00 Pulse Ox 69 12/31/16 07:31 Intake & Output 12/30/16 12/31/16 12/31/16 18:59 06:59 18:59 Intake Total 1000 2031.667 Balance 1000 2031.667 Weight (lbs) 71.758 kg Intake: Intake, IV Amount 1000 1831.667 D5-0.9NS w/KCL 20mEq 1, 1000 1831.667 000 ml @ 100 mls/hr IV . Q10H [facility] Rx#:[id number] Oral 200 Other: # Voids 3 # Bowel Movements 0 Stool Characteristics Soft Active Medications: Current Medications Acetaminophen (Tylenol) 650 mg PO Q4H PRN PRN Reason: Pain Or Fever above 101 Stop: 02/26/17 19:57 Al Hydrox/Mg Hydrox/Simethicone (Maalox) 30 ml PO Q4H PRN PRN Reason: DYSPEPSIA Stop: 02/26/17 21:04 Albuterol Sulfate (Albuterol 2.5mg/3ml Neb Ud) 2.5 mg HHN Q6H PRN PRN Reason: sob/wheezing Docusate Sodium (Colace) 100 mg PO DAILY [facility] Stop: 02/27/17 08:59 Last Admin: 12/31/16 09:02 Dose: 100 mg Hydromorphone HCl (Dilaudid) 1 mg IVP Q4HR PRN PRN Reason: Pain (Severe) Stop: 02/26/17 19:56 Last Admin: 12/30/16 22:02 Dose: 1 mg Potassium Chloride/Dextrose/Sod Cl (D5-0.9ns W/Kcl 20meq) 1,000 mls @ 100 mls/ hr IV .Q10H SEAN Stop: 02/26/17 19:55 Last Infusion: 12/31/16 06:24 Dose: 100 mls/hr Lorazepam (Ativan) 1 mg PO Q6H PRN; Protocol PRN Reason: Anxiety Stop: 02/26/17 19:52 Magnesium Hydroxide (Milk Of Magnesia) 30 ml PO HS PRN PRN Reason: Constipation Stop: 02/26/17 19:52 Last Admin: 12/31/16 07:01 Dose: 30 ml Ondansetron HCl (Zofran) 4 mg IV Q8H PRN PRN Reason: Nausea / Vomiting Stop: 02/26/17 19:57 Last Admin: 12/29/16 00:00 Dose: 4 mg Pantoprazole Sodium (Protonix) 40 mg IVP BID [facility] Stop: 02/28/17 16:59 Last Admin: 12/31/16 09:02 Dose: 40 mg Risperidone (Risperdal) 2 mg PO BID [facility] Stop: 02/27/17 08:59 Last Admin: 12/31/16 09:02 Dose: 2 mg Senna (Senna) 8.6 mg PO DAILY [facility] Stop: 02/27/17 08:59 Last Admin: 12/31/16 09:02 Dose: 8.6 mg Sertraline HCl (Zoloft) 100 mg PO DAILY [facility] Stop: 02/27/17 08:59 Last Admin: 12/31/16 09:02 Dose: 100 mg Zolpidem Tartrate (Ambien) 10 mg PO HS PRN PRN Reason: Insomnia Stop: 02/26/17 21:06 General: Alert, Oriented x3 Abdomen: Soft, Other (no distension, no guard, no rebound) - Procedures Procedures: Procedures Procedure Code Date EGD BIOPSY SINGLE/MULTIPLE 69597 12/28/16 EXCISION OF DUODENUM, ENDO, DIAGN [id number] 12/28/16 EXCISION OF STOMACH, ENDO, DIAGN [id number] 12/28/16 Assessment/Plan - Problem List Patient Problems: All Active Problems LEFT SIDED ABDOMINAL PAIN (Acute) - Assessment Assessment: # Large duodenal ulcer # Esophagitis # Likely Barretts esophagus Origin of the patient's duodenal ulcer is not clear, although there is history of requiring surgery in the past for a duodenal ulcer. We will need to follow the biopsies to check for H pylori and treat if positive. - f/u biopsies, treat H pylori if positive - Avoid all NSAIDs strictly - will need bid protonix for at least 2 months - Repeat EGD in 8 weeks to both examine for ulcer healing, and to re-examine likely Barretts esophagus and perform dysplasia screening biopsies - diet as tolerated, although his duodenal ulcer can likely obstruct the duodenum when inflamed (PPI should help with this)
[2016-12-31] MEDS: D5-0.9NS w/KCL 20mEq 1,000 ML IV SCH (10:44)
[2016-12-31] MEDS ORDERED: Pantoprazole 40 mg/Packet PO SCH (17:00)
--- NOTE | 2016-12-31 22:10 | Discharge Summary ---
DATE OF DISCHARGE: 12/31/2016 CHIEF COMPLAINT: Abdominal pain. FINAL DIAGNOSES: Abdominal pain secondary to duodenal ulcer, esophagitis, possible Pulido's esophagus, chronic obstructive pulmonary disease, renal insufficiency, schizoaffective disorder, mild protein-calorie malnutrition, electrolyte abnormalities. HISTORY: This is a 51-year-old male from nursing facility who was brought in secondary to abdominal pain and discomfort which was ongoing for several months. The patient was evaluated in the ER and admitted for further management. PHYSICAL EXAMINATION: VITAL SIGNS: Blood pressure 114/74, respirations 18, pulse 74, temperature 97. GENERAL: Elderly male who appears his stated age. NECK: Supple. No mass. LUNGS: Equal breath sounds, few rhonchi. HEART: Regular rate and rhythm without appreciable murmur. ABDOMEN: Soft, nontender. EXTREMITIES: Positive excoriations. NEUROLOGIC: Limited. HOSPITAL COURSE: The patient was admitted to medical floor, continue proton pump inhibitor intravenously. Continue to give IV pain medicine. The patient was referred to Dr. Li and ____ for GI. EGD showed large duodenal ulcer, esophagitis and changes significant for Pulido's esophagus. The patient's condition improved and cleared for discharge. DISCHARGE INSTRUCTIONS: The patient to continue current medical regimen. The patient to be followed by GI on routine basis. JOB# [id number]
--- NOTE | 2017-01-02 15:19 | Pathology Report ---
[id number] Collection Date: 12/30/2016 Surgeon: Dr. Len Valenzuela Specimen Description: 1. Antrum biopsy 2. Duodenal ulcer biopsy 3. Esophageal biopsy Gross Description: Part I: Received in formalin are two musa soft tissue fragments ranging from 0.1 to 0.2 cm in greatest dimension. Totally submitted in one cassette labeled A. Gross Description: Part II: Received in formalin is a single musa soft tissue fragment measuring 0.2 cm in greatest dimension. Totally submitted in one cassette labeled B. Gross Description: Part III: Received in formalin are two tiny fragments of musa soft tissue measuring up to 0.1 cm in greatest dimension. Totally submitted in one cassette labeled C. Microscopic Description: Part I: The histologic sections show gastric mucosa with extensive chronic inflammation present consisting of increased numbers of lymphocytes and plasma cells. The Giemsa stain shows multiple curved bacilli with morphologic features consistent with Helicobacter pylori. Diagnosis: Part I: 1. Extensive chronic gastritis, antrum biopsy. 2. The Giemsa stain is positive for Helicobacter pylori. Microscopic Description: Part II: The histologic sections show duodenal mucosa with intact intestinal villi, showing no evidence for villous abnormality. There are increased numbers of inflammatory cells consisting of mostly lymphocytes and plasma cells. There is no evidence for atypia. Diagnosis: Part II: Nonspecific chronic inflammation, biopsy of duodenal ulcer edge. Microscopic Description: Part III: The histologic sections show superficial fragments of esophageal mucosa consisting of both squamous and glanular epithelium. There is chronic inflammation present consisting of increased numbers of lymphocytes and plasma cells. The PAS stain shows no evidence for fungal organisms. The Alcian blue stain shows no significant abnormalities. Diagnosis: Part III: 1. Chronic esophagitis, esophageal biopsy. 2. There is no definite evidence for Pulido's esophagus. Comment: These findings are discussed with Dr. Len Valenzuela on 01/02/2017. Clinical correlation is recommended to determine if follow-up studies are warranted. [facility]# [id number]
== END 2016-12-31 14:10 | disposition home or self-care (01) | DRG 384 ==
LOC: ER 14:57 → MSI 20:50
PROVIDERS: ADMIT Internal Medicine; ATTEND Internal Medicine
PROC: 0DB68ZX Excision of Stomach, Via Natural or Artificial Opening Endoscopic, Diagnostic (ICD-10-PCS; principal; 2016-12-30)
PROC: 0DB98ZX Excision of Duodenum, Via Natural or Artificial Opening Endoscopic, Diagnostic (ICD-10-PCS; 2016-12-30)
PROC: 0DB58ZX Excision of Esophagus, Via Natural or Artificial Opening Endoscopic, Diagnostic (ICD-10-PCS; 2016-12-30)
DX: K26.9 Duodenal ulcer, unspecified as acute or chronic, without hemorrhage or perforation (principal); N17.9 Acute kidney failure, unspecified; E44.1 Mild protein-calorie malnutrition; K31.1 Adult hypertrophic pyloric stenosis; E83.42 Hypomagnesemia; K20.9 Esophagitis, unspecified; K22.70 Barrett's esophagus without dysplasia; J44.9 Chronic obstructive pulmonary disease, unspecified; E87.6 Hypokalemia; F17.210 Nicotine dependence, cigarettes, uncomplicated; F32.9 Major depressive disorder, single episode, unspecified; F41.9 Anxiety disorder, unspecified; F25.9 Schizoaffective disorder, unspecified; Z68.23 Body mass index [BMI] 23.0-23.9, adult; Z88.8 Allergy status to other drugs, medicaments and biological substances; Z88.5 Allergy status to narcotic agent; Z82.49 Family history of ischemic heart disease and other diseases of the circulatory system
CPT/HCPCS: 36415-UA; 71010-TC; 80048-TC; 80053-TC; 81001-TC; 82948-90; 83690-TC; 83735-TC; 84443-TC; 84484-TC; 85025-TC; 85610-TC; 88305-90; 88312-90; 88313-90; 90732; 93005; 94760; 96374; C9113; J1170; J2250; J2405; J2765; J3010; J3490; J7030